=== PATIENT | male | born 2000 ===

== ENCOUNTER 2023-09-09 19:35 | Inpatient (IN) | payer OTHER ==
[2023-09-10 06:09] LABS: ALT 19 U/L (4-49); AST 23 U/L (17-59); African American GFR (CKD) >90 (>60 ml/min/1.73 sqM); Albumin 4.9 g/dL (3.5-5.0); Alkaline Phosphatase 65 U/L (38-126); Anion Gap 13 mmol/L; Blood Urea Nitrogen 5 mg/dL (9-20); Calcium 9.8 mg/dL (8.4-10.2); Carbon Dioxide 26 mmol/L (22-30); Chloride 102 mmol/L (98-107); Glucose 108 mg/dL (74-99); Non-African American GFR(CKD) >90 (>60 ml/min/1.73 sqM); Sodium 141 mmol/L (137-145); Total Bilirubin 1.3 mg/dL (0.2-1.3)
[2023-09-10 06:10] LABS: Basophils % (A) 0 %; Eosinophils % (A) 0 %; HCT 48.8 % (39.0-53.0); HGB 16.9 gm/dL (13.0-17.5); Lymphocytes # (A) 2.3 k/uL (1.0-4.8); Lymphocytes % (A) 21 %; MCH 28.8 pg (25.0-35.0); MCHC 34.5 g/dL (31.0-37.0); MCV 83.4 fL (80.0-100.0); Mean Platelet Volume 9.2; Monocytes # (A) 0.7 k/uL (0-1.0); Monocytes % (A) 7 %; Neutrophils % (A) 71 %; Platelet Count 177 k/uL (150-450); RBC 5.85 m/uL (4.30-5.90); RDW 12.6 % (11.5-15.5); WBC 11.3 k/uL (3.8-10.6)
[2023-09-10 06:12] LABS: Potassium 3.6 mmol/L (3.5-5.1)
[2023-09-10 06:53] LABS: Appearance,Urine Clear (Clear); Bilirubin,Urine Negative (Negative); Blood,Urine Negative (Negative); Color,Urine Yellow; Glucose,Urine (UA) Negative (Negative); Ketones,Urine 3+ (Negative); Leukocyte Esterase,Urine Negative (Negative); Mucus,Urine Occasional /hpf; Nitrite,Urine Negative (Negative); Protein,Urine Negative (Negative); RBC,Urine 1 /hpf (0-5); Squamous Epithelial Cell,Urine <1 /hpf (0-4); Urobilinogen,Urine <2.0 mg/dL (<2.0); WBC,Urine 1 /hpf (0-5)
[2023-09-10 07:28] LABS: Amphetamine Screen,Urine Not Detected (NotDetected); Barbiturate Screen,Urine Not Detected (NotDetected); Benzodiazepines Screen,Urine Detected (NotDetected); Cocaine Screen,Urine Not Detected (NotDetected); Methadone Screen, Urine Not Detected (NotDetected); Opiate Screen,Urine Not Detected (NotDetected); Oxycodone Screen, Urine Not Detected (NotDetected); Phencyclidine Screen,Urine Not Detected (NotDetected); Tricyclic Antidepressant,Urine Not Detected (NotDetected); Urn Cannabinoid Scrn Detected (NotDetected)
[2023-09-10] MEDS ORDERED: MAG HYDROX/AL HYDROX/SIMETH 30 ML CUP PO PRN (09:44)
[2023-09-10] MEDS ORDERED: IBUPROFEN 600 MG TAB PO PRN (09:44)
[2023-09-10] MEDS ORDERED: MAGNESIUM HYDROXIDE 2,400 MG/30 ML CUP PO PRN (09:44)
[2023-09-10] MEDS ORDERED: OLANZapine 10 MG VIAL IM PRN (10:11)
[2023-09-10] MEDS ORDERED: OLANZapine 7.5 MG TAB PO PRN (10:11)
[2023-09-10] MEDS ORDERED: hydrOXYzine HCL 50 MG/ML 1 ML VIAL IM PRN (10:14)
[2023-09-10] MEDS ORDERED: NICOTINE 14MG/24HR PATCH TRANSDERM SCH (10:15)
[2023-09-10] MEDS ORDERED: chlordiazePOXIDE 25 MG CAP PO STA (12:01)
--- NOTE | 2023-09-10 14:00 | P.HP ---
Psychiatric H&P - . H&P Date: 09/10/23 History & Physical: Allergies Allergy/AdvReac Type Severity Reaction Status Date / Time No Known Allergies Allergy Verified 09/10/23 12:57 Vital Signs Temp 98 F 09/10/23 08:00 Pulse 84 09/10/23 12:04 Resp 20 09/10/23 12:04 BP 203/77 09/10/23 12:04 Pulse Ox 98 09/10/23 11:31 FiO2 Intake & Output 09/09/23 09/10/23 09/10/23 18:59 06:59 18:59 Weight 56.699 kg 56.699 kg Laboratory Last Values WBC 11.3 k/uL (3.8-10.6) H 09/09/23 21:12 RBC 5.85 m/uL (4.30-5.90) 09/09/23 21:12 Hgb 16.9 gm/dL (13.0-17.5) 09/09/23 21:12 Hct 48.8 % (39.0-53.0) 09/09/23 21:12 MCV 83.4 fL (80.0-100.0) 09/09/23 21:12 MCH 28.8 pg (25.0-35.0) 09/09/23 21:12 MCHC 34.5 g/dL (31.0-37.0) 09/09/23 21:12 RDW 12.6 % (11.5-15.5) 09/09/23 21:12 Plt Count 177 k/uL (150-450) 09/09/23 21:12 MPV 9.2 09/09/23 21:12 Neutrophils % 71 % 09/09/23 21:12 Lymphocytes % 21 % 09/09/23 21:12 Monocytes % 7 % 09/09/23 21:12 Eosinophils % 0 % 09/09/23 21:12 Basophils % 0 % 09/09/23 21:12 Neutrophils # 8.0 k/uL (1.3-7.7) H 09/09/23 21:12 Lymphocytes # 2.3 k/uL (1.0-4.8) 09/09/23 21:12 Monocytes # 0.7 k/uL (0-1.0) 09/09/23 21:12 Eosinophils # 0.0 k/uL (0-0.7) 09/09/23 21:12 Basophils # 0.0 k/uL (0-0.2) 09/09/23 21:12 Sodium 141 mmol/L (137-145) 09/09/23 21:12 Potassium 3.6 mmol/L (3.5-5.1) 09/09/23 21:12 Chloride 102 mmol/L (98-107) 09/09/23 21:12 Carbon Dioxide 26 mmol/L (22-30) 09/09/23 21:12 Anion Gap 13 mmol/L 09/09/23 21:12 BUN 5 mg/dL (9-20) L 09/09/23 21:12 Creatinine 0.59 mg/dL (0.66-1.25) L 09/09/23 21:12 Est GFR (CKD-EPI)AfAm >90 (>60 ml/min/1.73 sqM) 09/09/23 21:12 Est GFR (CKD-EPI)NonAf >90 (>60 ml/min/1.73 sqM) 09/09/23 21:12 Glucose 108 mg/dL (74-99) H 09/09/23 21:12 Calcium 9.8 mg/dL (8.4-10.2) 09/09/23 21:12 Total Bilirubin 1.3 mg/dL (0.2-1.3) 09/09/23 21:12 AST 23 U/L (17-59) 09/09/23 21:12 ALT 19 U/L (4-49) 09/09/23 21:12 Alkaline Phosphatase 65 U/L (38-126) 09/09/23 21:12 Total Protein 8.0 g/dL (6.3-8.2) 09/09/23 21:12 Albumin 4.9 g/dL (3.5-5.0) 09/09/23 21:12 TSH 1.770 mIU/L (0.465-4.680) 09/09/23 21:12 Urine Color Yellow 09/10/23 03:30 Urine Appearance Clear (Clear) 09/10/23 03:30 Urine pH 7.0 (5.0-8.0) 09/10/23 03:30 Ur Specific [place] 1.010 (1.001-1.035) 09/10/23 03:30 Urine Protein Negative (Negative) 09/10/23 03:30 Urine Glucose (UA) Negative (Negative) 09/10/23 03:30 Urine Ketones 3+ (Negative) H 09/10/23 03:30 Urine Blood Negative (Negative) 09/10/23 03:30 Urine Nitrite Negative (Negative) 09/10/23 03:30 Urine Bilirubin Negative (Negative) 09/10/23 03:30 Urine Urobilinogen <2.0 mg/dL (<2.0) 09/10/23 03:30 Ur Leukocyte Esterase Negative (Negative) 09/10/23 03:30 Urine RBC 1 /hpf (0-5) 09/10/23 03:30 Urine WBC 1 /hpf (0-5) 09/10/23 03:30 Ur Squamous Epith Cells <1 /hpf (0-4) 09/10/23 03:30 Urine Mucus Occasional /hpf (None) H 09/10/23 03:30 Urine Opiates Screen Not Detected (NotDetected) 09/10/23 03:30 Ur Oxycodone Screen Not Detected (NotDetected) 09/10/23 03:30 Urine Methadone Screen Not Detected (NotDetected) 09/10/23 03:30 Ur Propoxyphene Screen Not Detected (NotDetected) 09/10/23 03:30 Ur Barbiturates Screen Not Detected (NotDetected) 09/10/23 03:30 U Tricyclic Antidepress Not Detected (NotDetected) 09/10/23 03:30 Ur Phencyclidine Scrn Not Detected (NotDetected) 09/10/23 03:30 Ur Amphetamines Screen Not Detected (NotDetected) 09/10/23 03:30 U Methamphetamines Scrn Not Detected (NotDetected) 09/10/23 03:30 U Benzodiazepines Scrn Detected (NotDetected) H 09/10/23 03:30 Urine Cocaine Screen Not Detected (NotDetected) 09/10/23 03:30 U Marijuana (THC) Screen Detected (NotDetected) H 09/10/23 03:30 Coronavirus (PCR) Not Detected (Not Detectd) 09/10/23 05:00 09/10/23 13:54 IDENTIFYING DATA: Patient is a 23-year-old male, currently homeless, he is u nemployed. HPI: Patient presented to the hospital yesterday, he was apparently brought in for bizarre behavior, psychotic symptoms responding to internal stimuli according to the CPS report. Patient apparently was seen at [facility] a couple of days ago and discharged. Patient gave a urine drug screen which was positive for THC and benzodiazepines. Patient was seen today laying in bed and agreeable speaker rewriter. He knew his full name, his age, he knew that he was in [facility]. He knew the correct month and year however believe that it was the . He appeared to be tearful at times and very suspicious of brighter. He was isolating in his room, refused to eat lunch today. He was endorsing severe paranoia thinking that his family was going to come to get him and also "jumped me". He was stating that he was feeling depressed and also anxious. He is claiming that he is very worried and cannot sleep. He appeared to be internally preoccupied. He states that his sleep is very poor, appetite is poor. He states that he cannot hold a job as he is "quitting everything". Patient denies any suicidal or homicidal ideations intent or plan. At this time patient denies any auditory or visual hallucinations. Patient claims that he smokes marijuana however did not specify how much, he also states he smokes cigarettes, denies any other recreational drug use. PAST PSYCHIATRIC HISTORY: Patient states that he has no previous mental health issues. Patient denies being on any psychiatric medications. Patient denies any previous psychiatric hospitalizations. Patient denies any psychiatric outpatient follow-up. Patient denies any history of suicide attempts in the past. PMH:denies ALLERGIES: as per EMR CHEMICAL DEPENDENCY HISTORY: as per HPI FAMILY PSYCHIATRIC/SUBSTANCE USE HISTORY: denies SOCIAL HISTORY: Patient was born and raised in [place] and claims that he moved to [place] when he was a young kid due to his mother moving with his step father. He states that he completed up to the 12th grade in school, denies any legal history. He states that he is currently homeless, he is unemployed. MENTAL STATUS EXAM: General Appearance: Patient appears to be thin, appears to be anxious and shaking at times, stated age is alert, directable, and attempts to cooperate. Patient appears to have poor hygiene and grooming. Behavior: Patient is seated without any agitated behavior. Severe paranoia. Attempts to cooperate Speech: Patient's speech is fluent and nonpressured. Hesitant and timid Mood/Affect: Patient reports their mood is depressed, affect is congruent and tearful Suicidality/Homicidality: Patient denies having any homicidal ideation intent or plan. Denies any suicidal ideations intent or plan Perceptions: Patient denies any visual hallucinations and denies any auditory hallucinations Though content/process: Paranoia towards family and other people on the unit, bizarre thoughts, illogical. Memory and concentration: AOX3, grossly intact for the purposes of this session. Can spell "WORLD" backwards Judgment and insight: poor STRENGTHS/WEAKNESSES: strength is that patient is resilient. Weakness is that patient has poor judgment and is impulsive INTELLECT: average IMPRESSIONS: Psychosis unspecified Cannabis use disorder Nicotine dependence PLAN: -Patient is admitted under involuntary status to MHU for stabilization of psychiatric symptoms and safety. Patient has not signed adult voluntary form and medication consent and is placed in patient's chart. A second certification was completed and along with petition will be filed for court. -Medications : Start paliperidone by mouth 3 mg daily at bedtime for psychosis/mood stabilization, trazodone 50 mg daily at bedtime for sleep. -Zyprexa and Vistaril PRN for agitation/aggression -Patient was counselled on substance abuse and desired to cut back on use -Patient was informed of the risks, benefits and side effects of the medication and patient verbally consented -Internal Medicine consult to perform medical evaluation and physical. -NRT - nicotine patch -SW on board for discharge planning. Encourage patient to participate in groups to work on coping skills. Will await deferral and court date.
--- NOTE | 2023-09-10 14:53 | CT ---
EXAMINATION TYPE: CT brain wo con DATE OF EXAM: 09/10/2023 COMPARISON: None HISTORY: first episode psychosis CT DLP: [address] of the brain was performed. Portions of the study are limited by patient motion. The ventricles, basal cisterns and sulci overlying the cerebral convexities demonstrate a normal appe arance. There is no evidence for intracranial hemorrhage or sulcal effacement. No mass effects are seen. Osseous calvarium is intact. If symptoms persist consider MRI as clinically warranted. IMPRESSION: 1. No acute intracranial process is seen at this time.
[2023-09-10] MEDS: hydrOXYzine pamoate 25 MG CAP PO PRN (17:06)
[2023-09-10] MEDS: OLANZapine 10 MG TAB PO PRN (17:06)
[2023-09-10] MEDS ORDERED: HALOPERIDOL LACTATE 5 MG/ML 1 ML VIAL IM STA (18:44)
[2023-09-10] MEDS ORDERED: LORazepam 2 MG/ML INJ IM STA (18:45)
[2023-09-10] MEDS ORDERED: PALIPERIDONE 3 MG TAB.ER.24 PO SCH (21:00)
[2023-09-10] MEDS ORDERED: traZODone HCL 50 MG TAB PO SCH (21:00)
[2023-09-10] MEDS ORDERED: QUEtiapine 50 MG TAB PO SCH (21:00)
--- NOTE | 2023-09-11 01:46 | P.PN ---
Progress Note - Text Progress Note Date: 09/10/23 patient continues to be psychotic , unpredictable, and aggressive , per RN patient not appropriate for evaluation at this time
[2023-09-11] MEDS ORDERED: LORazepam 1 MG TAB PO PRN (10:10)
[2023-09-11] MEDS ORDERED: traZODone HCL 50 MG TAB PO PRN (10:11)
--- NOTE | 2023-09-11 10:17 | P.PN ---
Progress Note - Text Progress Note Date: 09/11/23 Interval history: Patient was seen today sitting in his room on his bed facing out the window. He was agreeable to speak with song writer in the office today. She brought all his belongings in a paper bag. When asked about it he states "I don't trust anybody here" and believes that his family or friends might come and steal his items. He continues to endorse severe paranoia and believes that the government also may be coming after him. He also states that he is getting messages from the government and other people however he cannot call song writer what they are. He made several bizarre statements and is illogical and had several delusions which are loosely formed. Patient appeared to be responding to internal stimuli and laughing at times. His blood pressure fluctuated significantly yesterday and he was agreeable to try blood pressure medication today. He states that he slept fairly last night, was feeling tired this morning. He has very poor decision- making skills, poor insight and judgment. At this time he is claiming he hears voices, denies any visual hallucinations. Denies any suicidal or homicidal ideations intent or plan. Not reporting any side effects from medications. Mental status examination: General Appearance: Patient appears to be thin, appears to be anxious, stated age is alert, directable, and attempts to cooperate. Patient appears to have mildly improving hygiene and grooming. Behavior: Patient is seated without any agitated behavior. Severe paranoia. Attempts to cooperate. Bizarre Speech: Patient's speech is fluent and nonpressured. Mood/Affect: Patient reports their mood is anxious, affect is congruent Suicidality/Homicidality: Patient denies having any homicidal ideation intent or plan. Denies any suicidal ideations intent or plan Perceptions: Patient denies any visual hallucinations and denies any auditory hallucinations Though content/process: Paranoia towards family and other people on the unit, bizarre thoughts, illogical. Several loosely formed delusions. Memory and concentration: AOX3, grossly intact for the purposes of this session Judgment and insight: poor IMPRESSIONS: Psychosis unspecified Cannabis use disorder Nicotine dependence alcohol use disorder? PLAN: -Patient is admitted under involuntary status to MHU for stabilization of psychiatric symptoms and safety. Patient has not signed adult voluntary form and medication consent and is placed in patient's chart. A second certification was completed and along with petition will be filed for court. -Medications : Increase paliperidone by mouth 6 mg daily at bedtime for psychosis/mood stabilization, change trazodone 50 mg daily at bedtime prn for sleep. -Zyprexa and Vistaril PRN for agitation/aggression -unclear if patient is withdrawing from etoh at this time due to unstable vitals. pt reports a vague and illogical hx of etoh use. start ciwa q4hr with prn ativan -CT brain on 09/10 - negative for any acute changes. -NRT - nicotine patch -SW on board for discharge planning. Encourage patient to participate in groups to work on coping skills. Will await deferral and court date.
[2023-09-11] MEDS: amLODIPine 5 MG TAB PO SCH (11:42)
[2023-09-11] MEDS: LORazepam 1 MG TAB PO PRN ×2 (11:50→19:57)
[2023-09-11 12:30] LABS: Basophils # (A) 0.1 k/uL (0-0.2); Basophils % (A) 1 %; Eosinophils # (A) 0.1 k/uL (0-0.7); Eosinophils % (A) 0 %; HCT 54.1 % (39.0-53.0); Lymphocytes % (A) 15 %; MCH 29.7 pg (25.0-35.0); MCHC 35.1 g/dL (31.0-37.0); MCV 84.7 fL (80.0-100.0); Monocytes # (A) 0.7 k/uL (0-1.0); Monocytes % (A) 5 %; Neutrophils % (A) 77 %; Platelet Count 241 k/uL (150-450); RBC 6.39 m/uL (4.30-5.90); RDW 13.2 % (11.5-15.5)
[2023-09-11 12:33] LABS: ALT 25 U/L (4-49); AST 42 U/L (17-59); African American GFR (CKD) >90 (>60 ml/min/1.73 sqM); Albumin 5.6 g/dL (3.5-5.0); Alkaline Phosphatase 60 U/L (38-126); Anion Gap 20 mmol/L; Blood Urea Nitrogen 17 mg/dL (9-20); Calcium 10.8 mg/dL (8.4-10.2); Carbon Dioxide 25 mmol/L (22-30); Chloride 99 mmol/L (98-107); Glucose 95 mg/dL (74-99); Non-African American GFR(CKD) >90 (>60 ml/min/1.73 sqM); Potassium 4.1 mmol/L (3.5-5.1); Sodium 144 mmol/L (137-145); Total Bilirubin 1.6 mg/dL (0.2-1.3); Total Protein 9.2 g/dL (6.3-8.2)
[2023-09-11 16:45] LABS: Chol/HDL Ratio 1.69 Ratio; LDL Cholesterol,Calculated 25.4 mg/dL (0.0-131.0); VLDL Calculation 10.36 mg/dL (5.00-40.00)
[2023-09-11] MEDS: NICOTINE 14MG/24HR PATCH TRANSDERM SCH (17:29)
[2023-09-11] MEDS ORDERED: hydrALAZINE HCL 25 MG TAB PO PRN (18:11)
--- NOTE | 2023-09-11 18:12 | P.MDCNMH ---
History of Present Illness H&P Date: 09/11/23 Chief Complaint: medical management 23 year old man who presented for mental health evaluation. Pt is actively psychotic and history is limited. His only complaint is inability to go to sleep. He is being treated for withdrawal with Ativan PRN. He denies hx of HTN, HLD, DM, heart, kidney, liver disease, CVA or DE. Gen: awake, alert HEENT: normocephalic, atraumatic, good hearing acuity, moist mucous membranes Resp: good air exchange, breathing comfortably with no accessory muscle use CVS: good distal perfusion x 4, GI: soft, NTTP, ND : no SPT, no CVAT, becker catheter not present MSK: no pitting edema, no clubbing Neuro: non-focal, moving all extremities Psych: cooperative, euthymic mood, psychotic Assessment/plan: Polycythemia Hypertensive urgency Tachycardia - Artery with 5 mg daily of amlodipine, will add 10 mg daily of lisinopril - Hydralazine 25 mg 4 times a day when necessary for SBP greater than 180 - Continue to treat withdrawal symptoms with Ativan when necessary - Repeat labs tomorrow a.m. Pt is Full COde Past Medical History History of Any Multi-Drug Resistant Organisms: None Reported Past Psychological History: Bipolar Smoking Status: Current some day smoker, Former smoker, Vaper Past Alcohol Use History: None Reported Past Drug Use History: None Reported Medications and Allergies Home Medications Medication Instructions Recorded Confirmed Type No Known Home Medications 09/10/23 09/10/23 History Allergies Allergy/AdvReac Type Severity Reaction Status Date / Time No Known Allergies Allergy Verified 09/10/23 12:57 Physical Exam Osteopathic Statement: *. No significant issues noted on an osteopathic structural exam other than those noted in the History and Physical/Consult. Vitals: Vital Signs Pulse BP 09/11/23 11:48 126 H 181/87 Cranial Nerve Examination - Cranial Nerves Cranial Nerve II- Optic: Intact Cranial Nerve III- Oculomotor: Intact Cranial Nerve IV- Trochlear: Intact Cranial Nerve V- Trigeminal: Intact Cranial Nerve - Abducens: Intact Cranial Nerve VII- Facial: Intact Cranial Nerve VIII- Auditory: Intact Cranial Nerve IX- Glossopharyngeal: Intact Cranial Nerve X- Vagus: Intact Cranial Nerve XI- Accessory: Intact Cranial Nerve XII- Hypoglossal: Intact Results CBC & Chem 7: 09/11/23 10:40 10/20/23 10:40 Labs: Abnormal Lab Results - Last 24 Hours (Table) 09/11/23 09/11/23 Range/Units 10:40 10:40 WBC 13.0 H (3.8-10.6) k/uL RBC 6.39 H (4.30-5.90) m/uL Hgb 19.0 H (13.0-17.5) gm/dL Hct 54.1 H (39.0-53.0) % Neutrophils # 10.0 H (1.3-7.7) k/uL Calcium 10.8 H (8.4-10.2) mg/dL Total Bilirubin 1.6 H (0.2-1.3) mg/dL Total Protein 9.2 H (6.3-8.2) g/dL Albumin 5.6 H (3.5-5.0) g/dL
[2023-09-11] MEDS: lisinopriL 10 MG TAB PO SCH (19:01)
[2023-09-11] MEDS ORDERED: PALIPERIDONE 6 MG TAB.ER.24 PO SCH (21:00)
[2023-09-11] MEDS: OLANZapine 10 MG TAB PO PRN (21:38)
--- NOTE | 2023-09-12 11:07 | P.PN ---
Progress Note - Text Progress Note Date: 09/12/23 Interval history: Patient was seen lying in his bed this morning and was directable and agreeable to speak with fha underwriter. Patient appeared to be somewhat lethargic. He was attempting to speak with the fha underwriter difficult to redirect. He had several pieces of paper with rape written on it in his room. He claims that he is worried about someone coming into his room and continues to have disorganized thoughts and paranoia. He has been taking his medications as prescribed. He states that he has a difficult time sleeping last night. Claims that he has not been going to many groups and mainly isolating in his room, mild improvement in hygiene and grooming. At this time patient denies any suicidal or homicidal ideations intent or plan. Denies any Auditory or visual hallucinations. Patient denies any side effects from the medications and has been compliant with meds. Mental status exam: General Appearance: Patient appears to be stated age is alert, directable, and attempts to be cooperative. Behavior: No agitated behavior. Patient is calm and directable and tends to be paranoid and disorganized Speech: Patient's speech is fluent and nonpressured. Mood/Affect: Mood is improving mildly, affect is congruent and constricted. Suicidality/Homicidality: Patient denies having any suicidal or homicidal ideation intent or plan. Perceptions: Patient denies any auditory or visual hallucinations. Though content/process: Delusional, mildly improving. Attempts to cooperate. Endorsing paranoia, mildly improving. Memory and concentration: AOX3, grossly intact for the purposes of this session Judgment and insight: Poor, improving mildly Assessment/Plan: Continue with current diagnosis. Patient continues to meet criteria for inpatient psychiatric admission for symptom stabilization and safety.Patient will be maintained on current psychotropic medication regimen, with the exception of increasing paliperidone to 9 mg daily at bedtime for psychosis, increased Norvasc to 10 mg daily for significant hypertension. Monitor for medication compliance and for any psychotropic medication side effects. Will continue to monitor ongoing response to treatment. Encouraged participation in milieu.
[2023-09-12] MEDS: lisinopriL 10 MG TAB PO SCH (11:52)
[2023-09-12] MEDS: amLODIPine 5 MG TAB PO SCH (11:52)
[2023-09-12] MEDS: NICOTINE 14MG/24HR PATCH TRANSDERM SCH (11:53)
[2023-09-12 12:38] LABS: Basophils % (A) 0 %; Eosinophils % (A) 0 %; HCT 49.2 % (39.0-53.0); HGB 17.2 gm/dL (13.0-17.5); Lymphocytes # (A) 1.3 k/uL (1.0-4.8); Lymphocytes % (A) 13 %; MCH 29.3 pg (25.0-35.0); MCHC 34.9 g/dL (31.0-37.0); Mean Platelet Volume 9.4; Monocytes # (A) 0.6 k/uL (0-1.0); Monocytes % (A) 6 %; Neutrophils # (A) 7.8 k/uL (1.3-7.7); Neutrophils % (A) 79 %; Platelet Count 192 k/uL (150-450); RBC 5.86 m/uL (4.30-5.90); RDW 13.3 % (11.5-15.5)
[2023-09-12 13:10] LABS: African American GFR (CKD) 66 (>60 ml/min/1.73 sqM); Anion Gap 16 mmol/L; Blood Urea Nitrogen 18 mg/dL (9-20); Carbon Dioxide 22 mmol/L (22-30); Chloride 97 mmol/L (98-107); Glucose 128 mg/dL (74-99); Magnesium 2.1 mg/dL (1.6-2.3); Non-African American GFR(CKD) 57 (>60 ml/min/1.73 sqM); Potassium 4.2 mmol/L (3.5-5.1); Sodium 135 mmol/L (137-145)
[2023-09-12] MEDS ORDERED: LORazepam 2 MG/ML INJ IM STA (13:11)
[2023-09-12] MEDS ORDERED: SODIUM CHLORIDE 0.9% 1,000 ML IV ONE (14:01)
[2023-09-12] MEDS ORDERED: METOPROLOL TARTRATE 12.5 MG TAB PO SCH (14:27)
--- NOTE | 2023-09-12 14:40 | P.PN ---
Progress Note - Text Progress Note Date: 09/12/23 A- team: Indication: Received page that patient's heart rate was 173 bpm, notified RN to call for immediate A-Team to get EKG at bedside Arrived on Scene to find: Patient resting bed appearing to be comfortable and denied having any complaints. Patient was noted to have intermittent mild tremors. He is currently admitted to inpatient mental health unit for treatment of psychosis under treatment of psychiatry team. During this time patient has been treated for tachycardia and hypertensive urgency. Patient was started on amlodipine 5 mg daily and lisinopril 10 mg daily. He has when necessary Ativan ordered for signs/symptoms of withdraw. Urine drug screen upon admission was positive for benzodiazepines and marijuana. Patient also reports to daily alcohol use but is very vague with his responses, patient states I drink every day and then giggles but did not elaborate on the amount of alcohol he drinks daily. He was admitted to inpatient psychiatric unit on 09/10/23 and patient reports it has been approximately 48 hours or so since his last alcoholic drink. Again, patient denies having any complaints or concerns at this time. He was noted to have a significant drop in his blood pressure as upon arrival blood pressure was 203/77 and is currently 113/52 after medications were administered. Order placed for stat EKG, CBC, BMP, d-dimer, and magnesium. TSH was drawn yesterday and was normal findings at 2.030. General: non toxic, no distress, appears at stated age Derm: warm, dry and coloration normal for ethnicity Head: atraumatic, normocephalic, symmetric Eyes: EOMI, no lid lag, anicteric sclera Mouth: no lip lesion, mucus membranes moist Cardiovascular: S1S2 reg, no murmur, positive posterior tibial pulses bilaterally, tachycardic rate with regular rhythm Lungs: CTA bilateral, no rhonchi, no rales , no accessory muscle use Abdominal: soft, nontender to palpation, no guarding, no appreciable organomegaly Ext: no gross muscle atrophy, no edema, no contractures Neuro: CN II-XI grossly intact, no focal neuro deficits Psych: Alert, oriented, appropriate affect Assessment: Sinus tachycardia, possibly secondary to withdrawal vs rebound tachycardia resulting from significant drop in blood pressure vs adverse reaction of medication such as Invega or zyprexa Acute kidney injury Psychosis, unspecified Alcohol withdrawal Cannabinoid use disorder Nicotine dependence Plan: -Labs ordered and reviewed. CBC was unremarkable showing a WBC count of 10.0, hemoglobin of 17.2, and platelet count of 192. BMP revealing hyponatremia with sodium of 135, hypochloremia with chloride of 97, and an acute kidney injury with BUN of 18, creatinine 1.68, and GFR 57 (baseline creatinine of 0.85). Magnesium normal findings at 2.1 and d-dimer normal findings is 0.18. -Order placed for EKG and reviewed. EKG revealing sinus tachycardia at 135 bpm with no significant T-wave or ST abnormalities showing no signs of acute ischemia with a normal QT/QTc of 301/380 ms.. -Order placed for Ativan 2 mg IM 1 dose, will monitor for improvement. -Lisinopril discontinued secondary to acute kidney injury and order placed for 1 L 0.9% normal saline to be infused. -Acute kidney injury could possibly be secondary to significant drop in blood pressure vs dehydration vs adverse effects of medication. -Discussed these findings with [facility] primary admitting physician, Dr. Pinto. Patient to remain on mental health unit and to continue to be monitored closely. -Order placed for repeat BMP tomorrow morning to follow up on renal function. -Do not recommend any additional antihypertensive medications at this time. Repeat vital signs after administration of IM Ativan completed and reviewed. Blood pressure 131/53, heart rate 122, respiratory rate 16 and temp 98.1F A Total of 38 minutes of critical care time was spent on the complex care of this patient. Patient was seen independently by Nurse Pracitioner. This document was prepared using [employer] dictation software. Please allow for errors in jumbo operator, while rare they do occur. Gian Espinal NP rendered care for this patient independently, reviewed the findings and plan as documented in the note above. I did not physically speak with or examine the patient on this date.
[2023-09-12] MEDS: OLANZapine 10 MG TAB PO PRN (17:34)
[2023-09-12] MEDS ORDERED: PALIPERIDONE 3 MG TAB.ER.24 PO SCH (21:00)
[2023-09-13] MEDS: amLODIPine 10 MG TAB PO SCH (08:58)
[2023-09-13] MEDS: NICOTINE 14MG/24HR PATCH TRANSDERM SCH (08:58)
--- NOTE | 2023-09-13 11:52 | P.PN ---
Progress Note - Text Progress Note Date: 09/13/23 Interval history: Patient was seen near the nurse's desk today sitting on the ground. He appears to be more awake today. He claims that he is doing a bit better. He states that he is still feeling fairly paranoid about his family or his father coming onto the unit and taking his belongings. He also did speak about "great". He states that he does not feel safe on the unit however was smiling during the interaction. He continues to have fairly poor insight and judgment. He states that he has not heard from his parents since being on the unit and is worried and wants to know ". They want me back home or not". States that he did not sleep well last night and slept with one eye open. continues to have disorganized thoughts and paranoia. He has been taking his medications as prescribed. mild improvement in hygiene and grooming. At this time patient denies any suicidal or homicidal ideations intent or plan. Denies any Auditory or visual hallucinations. Patient denies any side effects from the medications and has been compliant with meds. Mental status exam: General Appearance: Patient appears to be stated age is alert, directable, and attempts to be cooperative. Behavior: No agitated behavior. Patient is calm and directable and tends to be paranoid and disorganized, mild improvement Speech: Patient's speech is fluent and nonpressured. Mood/Affect: Mood is improving mildly, affect is congruent and constricted. Suicidality/Homicidality: Patient denies having any suicidal or homicidal ideation intent or plan. Perceptions: Patient denies any auditory or visual hallucinations. Though content/process: Delusional, mildly improving. Attempts to cooperate. Endorsing paranoia Memory and concentration: AOX3, grossly intact for the purposes of this session Judgment and insight: Poor, improving mildly Assessment/Plan: Continue with current diagnosis. Patient continues to meet criteria for inpatient psychiatric admission for symptom stabilization and safety.Patient will be maintained on current psychotropic medication regimen, with the exception of d/c paliperidone due to unstable vitals/tachycardia and replaced with geodon 40 mg bid for psychosis, trazodone 50 mg qhs for sleep. Monitor for medication compliance and for any psychotropic medication side effects. Will continue to monitor ongoing response to treatment. Encouraged participation in milieu. reviewed ekg today and continue to monitor pts bp and HR closely.
[2023-09-13] MEDS: ZIPRASIDONE 40 MG CAP PO SCH ×2 (13:04→17:15)
[2023-09-13 17:04] LABS: African American GFR (CKD) >90 (>60 ml/min/1.73 sqM); Anion Gap 12 mmol/L; Blood Urea Nitrogen 15 mg/dL (9-20); Calcium 9.7 mg/dL (8.4-10.2); Carbon Dioxide 26 mmol/L (22-30); Chloride 100 mmol/L (98-107); Glucose 94 mg/dL (74-99); Non-African American GFR(CKD) >90 (>60 ml/min/1.73 sqM); Potassium 4.5 mmol/L (3.5-5.1); Sodium 138 mmol/L (137-145)
[2023-09-13] MEDS: hydrOXYzine pamoate 25 MG CAP PO PRN (20:57)
[2023-09-13] MEDS ORDERED: traZODone HCL 50 MG TAB PO SCH (21:00)
[2023-09-14] MEDS: NICOTINE 14MG/24HR PATCH TRANSDERM SCH (07:58)
[2023-09-14] MEDS: ZIPRASIDONE 40 MG CAP PO SCH ×2 (07:58→18:35)
[2023-09-14] MEDS: amLODIPine 10 MG TAB PO SCH (07:58)
[2023-09-14] MEDS ORDERED: LORazepam 1 MG TAB PO PRN (12:45)
--- NOTE | 2023-09-14 13:34 | P.PN ---
Progress Note - Text Progress Note Date: 09/14/23 Interval history: Patient was seen today and was sitting in the lounge and other patients. Sunshine hernandez claims that he is doing a bit better today, states that he did have a mild headache this morning. He claims that he feels that the medications of been helping however was fairly irrational in his response. He continues to be somewhat bizarre, less paranoid today however continues to focus on his parents not calling him. He states that he gave the money to buy him a truck however they did not give him back his money or the truck. He claims that he is still finding it difficult to sleep at night and only slept a few hours, states that he still feels anxious at times and feels like his heart is racing. mild improvement in hygiene and grooming. At this time patient denies any suicidal or homicidal ideations intent or plan. Denies any Auditory or visual hallucinations. Patient denies any side effects from the medications and has been compliant with meds. Mental status exam: General Appearance: Patient appears to be stated age is alert, directable, and attempts to be cooperative. Behavior: No agitated behavior. Patient is calm and directable and tends to be paranoid, mild improvement Speech: Patient's speech is fluent and nonpressured. Mood/Affect: Mood is improving mildly, affect is congruent and constricted. Suicidality/Homicidality: Patient denies having any suicidal or homicidal ideation intent or plan. Perceptions: Patient denies any auditory or visual hallucinations. Though content/process: Delusional, mildly improving. Attempts to cooperate. less paranoia Memory and concentration: AOX3, grossly intact for the purposes of this session Judgment and insight: Poor, improving mildly Assessment/Plan: Continue with current diagnosis. Patient continues to meet criteria for inpatient psychiatric admission for symptom stabilization and safety.Patient will be maintained on current psychotropic medication regimen, continue with geodon 40 mg bid for psychosis, increase trazodone 100 mg qhs for sleep. added po ativan prn for anxiety and also lopressor for rate control due to ongoing tachycardia. Monitor for medication compliance and for any psychotropic medication side effects. Will continue to monitor ongoing response to treatment. Encouraged participation in milieu.
[2023-09-14] MEDS ORDERED: traZODone HCL 100 MG TAB PO SCH (21:00)
[2023-09-15] MEDS: ZIPRASIDONE 40 MG CAP PO SCH ×2 (08:53→17:44)
[2023-09-15] MEDS: amLODIPine 10 MG TAB PO SCH (08:53)
[2023-09-15] MEDS: NICOTINE 14MG/24HR PATCH TRANSDERM SCH (08:53)
[2023-09-15] MEDS ORDERED: METOPROLOL SUCCINATE (ER) 25 MG TAB.ER.24H PO SCH (13:00)
--- NOTE | 2023-09-15 15:07 | P.PN ---
Progress Note - Text Progress Note Date: 09/15/23 Interval history: Patient was seen today and was sitting in the lounge watching television. he was more cooperative today and states that he is doing better. he claims that he is still having some anxiety, denies any depression. He continues to be somewhat bizarre however this is improvin. he states that he still has not had contact with his parents and is worried. reporting less delusions and less paranoia. mild improvement in hygiene and grooming. At this time patient denies any suicidal or homicidal ideations intent or plan. Denies any Auditory or visual hallucinations. Patient denies any side effects from the medications and has been compliant with meds. continues to state that he is not getting enough. Mental status exam: General Appearance: Patient appears to be stated age is alert, directable, and attempts to be cooperative. Behavior: No agitated behavior. Patient is calm and directable and tends to be paranoid, improving. Speech: Patient's speech is fluent and nonpressured. Mood/Affect: Mood is improving mildly, affect is congruent and constricted. Suicidality/Homicidality: Patient denies having any suicidal or homicidal ideation intent or plan. Perceptions: Patient denies any auditory or visual hallucinations. Though content/process: Delusional, improving. Attempts to cooperate. less paranoid today Memory and concentration: AOX3, grossly intact for the purposes of this session Judgment and insight: improving mildly Assessment/Plan: Continue with current diagnosis. Patient continues to meet criteria for inpatient psychiatric admission for symptom stabilization and safety.Patient will be maintained on current psychotropic medication regimen, continue with geodon 40 mg bid for psychosis, increase trazodone 150 mg qhs for sleep. d/c ciwa at this time. Monitor for medication compliance and for any psychotropic medication side effects. Will continue to monitor ongoing response to treatment. Encouraged participation in milieu. likely discharge in 2-3 days.
[2023-09-15] MEDS: traZODone HCL 50 MG TAB PO SCH (21:09)
[2023-09-16] MEDS: METOPROLOL SUCCINATE (ER) 50 MG TAB.ER.24H PO SCH (08:30)
[2023-09-16] MEDS: ZIPRASIDONE 40 MG CAP PO SCH (08:30)
[2023-09-16] MEDS: amLODIPine 10 MG TAB PO SCH (08:30)
[2023-09-16] MEDS: NICOTINE 14MG/24HR PATCH TRANSDERM SCH (08:32)
--- NOTE | 2023-09-16 14:34 | P.PN ---
Progress Note - Text Progress Note Date: 09/16/23 Interval history: Patient was seen today in his room, he was washing his face in the sink. He had a sticker paper over his door handle that stated "kids only". When asked about this he did not gave a rational explanation and went on to speak that he does not trust adults. He smiled at times during the interview sometimes inappropriately. He continues to be somewhat delusional and bizarre in his thought content. He was fairly pleasant during the interaction. he was more cooperative today and states that he is doing better. he claims that he is still having some anxiety, denies any depression. He appears to be mildly less less delusions and less paranoia. mild improvement in hygiene and grooming. At this time patient denies any suicidal or homicidal ideations intent or plan. Denies any Auditory or visual hallucinations. Patient denies any side effects from the medications and has been compliant with meds. Mental status exam: General Appearance: Patient appears to be stated age is alert, directable, and attempts to be cooperative. pleasant. Behavior: No agitated behavior. Patient is calm and directable and tends to be paranoid, improving. bizzare. Speech: Patient's speech is fluent and nonpressured. Mood/Affect: Mood is improving mildly, affect is congruent and constricted. Suicidality/Homicidality: Patient denies having any suicidal or homicidal ideation intent or plan. Perceptions: Patient denies any auditory or visual hallucinations. Though content/process: Delusional, improving. Attempts to cooperate. less paranoid today. bizzare content. Memory and concentration: AOX3, grossly intact for the purposes of this session Judgment and insight: poor, improving mildly Assessment/Plan: Continue with current diagnosis. Patient continues to meet criteria for inpatient psychiatric admission for symptom stabilization and safety.Patient will be maintained on current psychotropic medication regimen, increase geodon 60 mg bid for psychosis, trazodone 150 mg qhs for sleep. Monitor for medication compliance and for any psychotropic medication side effects. Will continue to monitor ongoing response to treatment. Encouraged participation in milieu. likely discharge in 2-3 days. SW continuing to investigate to find out parents contact info.
[2023-09-16] MEDS: traZODone HCL 50 MG TAB PO SCH (20:24)
[2023-09-16] MEDS: ZIPRASIDONE 60 MG CAP PO SCH (20:24)
[2023-09-17] MEDS: ZIPRASIDONE 60 MG CAP PO SCH (08:27)
[2023-09-17] MEDS: amLODIPine 10 MG TAB PO SCH (08:28)
[2023-09-17] MEDS: METOPROLOL SUCCINATE (ER) 50 MG TAB.ER.24H PO SCH (08:28)
[2023-09-17] MEDS: NICOTINE 14MG/24HR PATCH TRANSDERM SCH (08:28)
--- NOTE | 2023-09-17 14:50 | P.PN ---
Progress Note - Text Progress Note Date: 09/17/23 Interval history: Patient was seen today in his room, he was washing his face in the sink and had a towel . He stated that he is "going to meet again". He states that he is feeling "a bit sick" however was fairly vague about his symptoms. He states that he's been drinking "too much of the tap water". He continues to have a sticky note above his door handle on his room that says "kids only" and explained that "it's not just for kids it's for other people to come into my room if they want to sleep here". He continues to be somewhat bizarre, difficult to redirect and laughing to himself. He was responding to internal stimuli still and walking around the room. He continues to be fairly pleasant with technical document writer and attempts to answer questions. Claimed that he was able to sleep last night fairly well. he claims that he is still having some anxiety, denies any depression. He appears to be mildly less delusions. mild improvement in hygiene and grooming. At this time patient denies any suicidal or homicidal ideations intent or plan. Denies any Auditory or visual hallucinations. States that he feels he is not tolerating the medication well. Mental status exam: General Appearance: Patient appears to be thin, stated age is alert, directable, and attempts to be cooperative. pleasant. Behavior: No agitated behavior. Patient is calm and directable and bizzare. pleasant Speech: Patient's speech is fluent and nonpressured. Mood/Affect: Mood is improving mildly, affect is congruent Suicidality/Homicidality: Patient denies having any suicidal or homicidal ideation intent or plan. Perceptions: Patient denies any auditory or visual hallucinations. Though content/process: Delusional, improving. Attempts to cooperate. less paranoid today. bizzare content. Memory and concentration: AOX3, grossly intact for the purposes of this session Judgment and insight: poor, improving mildly Assessment/Plan: Continue with current diagnosis. Patient continues to meet criteria for inpatient psychiatric admission for symptom stabilization and safety.Patient will be maintained on current psychotropic medication regimen, discontinue geodon and replace with prolixin PO 3 mg bid for psychosis, trazodone 150 mg qhs for sleep. Monitor for medication compliance and for any psychotropic medication side effects. Will continue to monitor ongoing response to treatment. Encouraged participation in milieu.
[2023-09-17] MEDS: traZODone HCL 50 MG TAB PO SCH (21:32)
[2023-09-18] MEDS: NICOTINE 14MG/24HR PATCH TRANSDERM SCH ×2 (08:32→17:13)
[2023-09-18] MEDS: amLODIPine 10 MG TAB PO SCH (08:33)
[2023-09-18] MEDS: METOPROLOL SUCCINATE (ER) 50 MG TAB.ER.24H PO SCH (08:33)
[2023-09-18] MEDS ORDERED: BENZTROPINE MESYLATE 0.5 MG TAB PO PRN (10:29)
--- NOTE | 2023-09-18 11:57 | P.PN ---
Progress Note - Text Progress Note Date: 09/18/23 Interval history: Patient was seen today in his room, and appeared to be exercising in the corner of his room. He again was fairly pleasant with regular and attempted to answer questions. He states that he talked to his mother yesterday over the phone and got into a "argument". He states that it was mainly about where he will be staying in the house however did not give further details. He continues to be pleasantly psychotic, bizarre thought process. he attempts to answer questions. Claimed that he was able to sleep last night fairly well. he claims that he is still having some anxiety, claimed that his mood is improving and is trying to remain optimistic. He states that he has been going to some groups and interacting with other patients. He appears to be mildly less delusions. mild improvement in hygiene and grooming. At this time patient denies any suicidal or homicidal ideations intent or plan. Denies any Auditory or visual hallucinations. Mental status exam: General Appearance: Patient appears to be thin, stated age is alert, directable, and attempts to be cooperative. pleasant. Behavior: No agitated behavior. Patient is calm and directable and bizzare. pleasant Speech: Patient's speech is fluent and nonpressured. Mood/Affect: Mood is improving mildly, affect is congruent Suicidality/Homicidality: Patient denies having any suicidal or homicidal ideation intent or plan. Perceptions: Patient denies any auditory or visual hallucinations. Though content/process: Delusional, improving. Attempts to cooperate. bizzare content. Memory and concentration: AOX3, grossly intact for the purposes of this session Judgment and insight: poor, improving mildly Assessment/Plan: Continue with current diagnosis. Patient continues to meet criteria for inpatient psychiatric admission for symptom stabilization and safety.Patient will be maintained on current psychotropic medication regimen, increase prolixin po to 5 mg bid for psychosis, added cogentin 0.5 mg bid prn for eps reaction, trazodone 150 mg qhs for sleep. zyprexa and vistaril prn for agitation and anxiety. Monitor for medication compliance and for any psychotropic medication side effects. Will continue to monitor ongoing response to treatment. Encouraged participation in milieu.
[2023-09-18] MEDS: traZODone HCL 50 MG TAB PO SCH (20:16)
[2023-09-19] MEDS: METOPROLOL SUCCINATE (ER) 50 MG TAB.ER.24H PO SCH (08:05)
[2023-09-19] MEDS: amLODIPine 10 MG TAB PO SCH (08:05)
[2023-09-19] MEDS: NICOTINE 14MG/24HR PATCH TRANSDERM SCH (08:05)
[2023-09-19 14:27] VITALS: BMI 19.0
[2023-09-19] MEDS ORDERED: diphenhydrAMINE 50 MG/ML 1 ML VIAL IM STA (16:08)
--- NOTE | 2023-09-19 18:22 | P.PN ---
Progress Note - Text Progress Note Date: 09/19/23 Interval history: Patient was seen today in his room where he was isolating in bed with lights o ff. He complains of muscle stiffness and was given Benadryl 50 mg IM x 1. His thoughts continue to be poorly organized and responses are difficult to understand. He claims he tried showering but got scared from the cold. He states he has been attending groups. He denies auditory hallucinations, and claims visual hallucinations of seeing "dots". He claims good sleep, mood and appetite. Nurses report patient was exhibiting muscle stiffness earlier today when walking and was given Cogentin. Mental status exam: General Appearance: Patient appears to be thin, disheveled adult male. Behavior: No agitated behavior. Laying in bed with lights off. Speech: Patient's speech is fluent and non-pressured. Mood/Affect: Mood is good, affect is congruent Suicidality/Homicidality: Patient denies having any suicidal or homicidal ideation intent or plan. Perceptions: Patient denies any auditory hallucinations, but reports seeing "dots" Though content/process: Delusional thoughts, disorganized thoughts Memory and concentration: AOX3, grossly intact for the purposes of this session Judgment and insight: poor, improving mildly Assessment/Plan: Continue with current diagnosis. Patient continues to meet criteria for inpatient psychiatric admission for symptom stabilization and safety. Increase Cogentin to 1 mg BID for EPS. He was given Benadryl 50 mg IM x 1 for muscle stiffness. Monitor for medication compliance and for any psychotropic medication side effects. Will continue to monitor ongoing response to treatment. Encouraged participation in milieu.
[2023-09-19] MEDS: BENZTROPINE MESYLATE 1 MG TAB PO SCH (20:39)
[2023-09-19] MEDS: traZODone HCL 50 MG TAB PO SCH (20:39)
[2023-09-20] MEDS: BENZTROPINE MESYLATE 1 MG TAB PO SCH ×2 (07:56→21:01)
[2023-09-20] MEDS: METOPROLOL SUCCINATE (ER) 50 MG TAB.ER.24H PO SCH (07:56)
[2023-09-20] MEDS: NICOTINE 14MG/24HR PATCH TRANSDERM SCH (07:56)
[2023-09-20] MEDS: amLODIPine 10 MG TAB PO SCH (07:56)
--- NOTE | 2023-09-20 18:08 | P.PN ---
Progress Note - Text Progress Note Date: 09/20/23 Interval history: Patient was found in the lounge reading and writing, with a peer. He is calm and pleasant on assessment. He reports muscle stiffness has resolved with Benadryl and Cogentin. His thoughts are linear and coherent today. He denies auditory hallucinations or visual hallucinations. He claims good sleep, mood and appetite. He is compliant with his medications and denies any new side effects. Mental status exam: General Appearance: Patient appears to be thin adult male, dressed in clean casual clothes, good hygiene and grooming. Behavior: No agitated behavior. Sitting in [place] reading and writing. Speech: Patient's speech is fluent and non-pressured. Mood/Affect: Mood is good, affect is congruent, bright and reactive. Suicidality/Homicidality: Patient denies having any suicidal or homicidal ideation intent or plan. Perceptions: Patient denies auditory hallucinations or visual hallucinations. Though content/process: Linear, goal-directed, no delusions expressed today Memory and concentration: AOX3, grossly intact for the purposes of this session Judgment and insight: poor, improving mildly Assessment/Plan: Continue with current diagnosis. Patient continues to meet criteria for inpatient psychiatric admission for symptom stabilization and safety. Continue Cogentin 1 mg BID for EPS. Continue current medication regime. Monitor for medication compliance and for any psychotropic medication side effects. Will continue to monitor ongoing response to treatment. Encouraged participation in milieu.
[2023-09-20] MEDS: traZODone HCL 50 MG TAB PO SCH (21:01)
[2023-09-21] MEDS: NICOTINE 14MG/24HR PATCH TRANSDERM SCH (08:00)
[2023-09-21] MEDS: amLODIPine 10 MG TAB PO SCH (08:00)
[2023-09-21] MEDS: BENZTROPINE MESYLATE 1 MG TAB PO SCH ×2 (08:00→21:15)
[2023-09-21] MEDS: METOPROLOL SUCCINATE (ER) 50 MG TAB.ER.24H PO SCH (08:00)
--- NOTE | 2023-09-21 11:47 | P.PN ---
Progress Note - Text Progress Note Date: 09/21/23 Interval history: Patient was seen today wandeirng the hallways and was sitting in the [facility] alone. Patient was going through his folder filled with papers in different activities she eats. He had various drawings over them. He appeared to be laughing less and more directable today and mildly more appropriate with the answers to questions. He states that he is doing better overall. He claims that he is still in an argument with his mother however was not able to describe what it is about. Continues to be distracted at times, mildly bizarre however this is improving. He continues to be taking his medications and not reporting any side effects at this time. Claimed that he was able to sleep last night fairly well. he claims that he is still having some anxiety however this is improving. improving hygiene and grooming. He states that he has been going to some groups and interacting with other patients. mild improvement in hygiene and grooming. At this time patient denies any suicidal or homicidal ideations intent or plan. Denies any Auditory or visual hallucinations. Mental status exam: General Appearance: Patient appears to be thin, stated age is alert, directable, and attempts to be cooperative. pleasant. Behavior: No agitated behavior. Patient is calm and directable and bizzare. pleasant Speech: Patient's speech is fluent and nonpressured. Mood/Affect: Mood is improving mildly, affect is congruent, improving. Suicidality/Homicidality: Patient denies having any suicidal or homicidal ideation intent or plan. Perceptions: Patient denies any auditory or visual hallucinations. Though content/process: less Delusional, improving. Attempts to cooperate. bizzare content at times, improving. Memory and concentration: AOX3, grossly intact for the purposes of this session Judgment and insight: poor, improving mildly Assessment/Plan: Continue with current diagnosis. Patient continues to meet criteria for inpatient psychiatric admission for symptom stabilization and safety.Patient will be maintained on current psychotropic medication regimen, continue prolixin po 5 mg bid for psychosis, continue cogentin 1 mg bid for eps reaction, trazodone 150 mg qhs for sleep. zyprexa and vistaril prn for agitation and anxiety. Monitor for medication compliance and for any psychotropic medication side effects. Will continue to monitor ongoing response to treatment. Encouraged participation in milieu. patient deferred with his workers compensation defense attorney and has been taking meds. will speak with patient about possibly switching onto MEDRANO prolixin for improved control of sx and ensure compliance.
[2023-09-21] MEDS: traZODone HCL 50 MG TAB PO SCH (21:14)
[2023-09-22] MEDS: BENZTROPINE MESYLATE 1 MG TAB PO SCH ×3 (08:13→20:26)
[2023-09-22] MEDS: METOPROLOL SUCCINATE (ER) 50 MG TAB.ER.24H PO SCH (08:13)
[2023-09-22] MEDS: NICOTINE 14MG/24HR PATCH TRANSDERM SCH (08:13)
[2023-09-22] MEDS: amLODIPine 10 MG TAB PO SCH (08:14)
[2023-09-22] MEDS ORDERED: fluPHENAZine DECANOATE 25 MG/ML 5ML MDV IM ONE (11:03)
--- NOTE | 2023-09-22 11:12 | P.PN ---
Progress Note - Text Progress Note Date: 09/22/23 Interval history: Patient was seen today wandering the hallways and was agreeable to speak to fe higgins today in his room. Patient appears to be in a happier mood today appears to be brighter in his affect. He states that he is doing overall fairly well with medications. He did complain of mild spasms in his legs at times however states that he has been walking in the hallways quite a bit. We spoke about increasing the Cogentin a little bit which may help with the spasms. She was agreeable to transition onto long-acting injection and wants to take less by mouth medications. He also claimed that he has been trying to go to groups, participating as best as he can. He continues to be fairly compliant with his medications. Claimed that he was able to sleep last night fairly well. he claims that he is still having some anxiety however this is improving. improving hygiene and grooming. mild improvement in hygiene and grooming. At this time patient denies any suicidal or homicidal ideations intent or plan. Denies any Auditory or visual hallucinations. Mental status exam: General Appearance: Patient appears to be thin, stated age is alert, directable, and attempts to be cooperative. pleasant. Behavior: No agitated behavior. Patient is calm and directable and bizzare. pleasant Speech: Patient's speech is fluent and nonpressured. Mood/Affect: Mood is improving mildly, affect is congruent, improving. Suicidality/Homicidality: Patient denies having any suicidal or homicidal ideation intent or plan. Perceptions: Patient denies any auditory or visual hallucinations. Though content/process: less Delusional, improving. Attempts to cooperate. bizzare content at times, improving Memory and concentration: AOX3, grossly intact for the purposes of this session Judgment and insight: poor, improving mildly Assessment/Plan: Continue with current diagnosis. Patient continues to meet criteria for inpatient psychiatric admission for symptom stabilization and safety. Patient will be maintained on current psychotropic medication regimen, decrease prolixin po 4 mg bid for psychosis with plan to titrate off, will give prolixin D 25 mg IM today. decrease cogentin 1 mg tid for eps reaction, trazodone 150 mg qhs for sleep. zyprexa and vistaril prn for agitation and anxiety. Monitor for medication compliance and for any psychotropic medication side effects. Will continue to monitor ongoing response to treatment. Encouraged participation in milieu. patient deferred with his associate attorney and has been taking meds. likely discharge in 2-3 days back home with parents.
[2023-09-22] MEDS: traZODone HCL 50 MG TAB PO SCH (20:25)
[2023-09-23] MEDS: METOPROLOL SUCCINATE (ER) 50 MG TAB.ER.24H PO SCH (07:56)
[2023-09-23] MEDS: BENZTROPINE MESYLATE 1 MG TAB PO SCH ×3 (07:56→20:25)
[2023-09-23] MEDS: NICOTINE 14MG/24HR PATCH TRANSDERM SCH (07:56)
[2023-09-23] MEDS: amLODIPine 10 MG TAB PO SCH (07:57)
--- NOTE | 2023-09-23 10:26 | P.PN ---
Progress Note - Text Progress Note Date: 09/23/23 Interval history: Patient was seen today laying in his bed and with this news writer today. Patient appears to be in a happier mood today appears to be brighter in his affect. He claims that he is doing fairly well at this time. He states that he is not having any more the EPS reactions or feeling like his legs are getting really think that he is trying to go to some groups. He appears to be more clear today and his thought process, is somewhat concrete. He states that he did talk to his mom continues to not relate in a fight with the talked about. Denies any depression or anxiety at this time. He remains fairly positive. Claimed that he was able to sleep last night fairly well. improving hygiene and grooming. At this time patient denies any suicidal or homicidal ideations intent or plan. Denies any Auditory or visual hallucinations. claims that he is not having any EPS or muscle spasms at this time. Mental status exam: General Appearance: Patient appears to be thin, stated age is alert, directable, and attempts to be cooperative. pleasant. Behavior: No agitated behavior. Patient is calm and directable and less bizzare. pleasant Speech: Patient's speech is fluent and nonpressured. Mood/Affect: Mood is improving mildly, affect is congruent, improving. Suicidality/Homicidality: Patient denies having any suicidal or homicidal ideation intent or plan. Perceptions: Patient denies any auditory or visual hallucinations. Though content/process: not Delusional, improving. Attempts to cooperate. concrete, more appropriate. Memory and concentration: AOX3, grossly intact for the purposes of this session Judgment and insight: poor, improving mildly Assessment/Plan: Continue with current diagnosis. Patient continues to meet criteria for inpatient psychiatric admission for symptom stabilization and safety. Patient will be maintained on current psychotropic medication regimen, decrease prolixin po 3 mg bid for psychosis with plan to titrate off, received prolixin D 25 mg IM on 09/22, next dose will be due in 2 weeks on 10/06. cogentin 1 mg tid for eps reaction, trazodone 150 mg qhs for sleep. zyprexa and vistaril prn for agitation and anxiety. Monitor for medication compliance and for any psychotropic medication side effects. Will continue to monitor ongoing response to treatment. Encouraged participation in milieu. patient deferred with his commercial attorney and has been taking meds. likely discharge in 1-2 days back home with parents once we titrate off the prolixin PO.
[2023-09-23] MEDS: traZODone HCL 50 MG TAB PO SCH (20:23)
[2023-09-24 07:18] VITALS: RESP 14; TEMP 98
[2023-09-24] MEDS: amLODIPine 10 MG TAB PO SCH (08:11)
[2023-09-24] MEDS: BENZTROPINE MESYLATE 1 MG TAB PO SCH ×2 (08:11→15:39)
[2023-09-24] MEDS: METOPROLOL SUCCINATE (ER) 50 MG TAB.ER.24H PO SCH (08:11)
[2023-09-24] MEDS: NICOTINE 14MG/24HR PATCH TRANSDERM SCH (08:16)
[2023-09-24 08:27] VITALS: BP 122/77; PULSE 89
[2023-09-24] MEDS ORDERED: fluPHENAZine DECANOATE 25 MG/ML 5ML MDV IM ONE (11:22)
--- NOTE | 2023-09-24 11:35 | P.DS ---
Providers Date of admission: 09/10/23 09:31 Expected date of discharge: 09/24/23 Attending physician: Laci Pinto MD Consults: 09/10/23 10:11 Consult Physician Routine Consulting Provider: Elliott Landry Consult Reason/Comments: H and P Do you want consulting provider notified?: Yes Primary care physician: Stated None - Discharge Diagnosis(es) (1) Unspecified psychosis Current Visit: Yes Status: Acute Priority: High (2) Cannabis use disorder Current Visit: Yes Status: Acute Priority: High (3) Nicotine dependence Current Visit: Yes Status: Acute Priority: Low (4) Alcohol abuse Current Visit: Yes Status: Acute Priority: Medium Hospital Course: Admission HPI: Admission note was completed by sign writer hand "Patient is a 23-year-old male, currently homeless, he is unemployed. Patient presented to the hospital yesterday, he was apparently brought in for bizarre behavior, psychotic symptoms responding to internal stimuli according to the CPS report. Patient apparently was seen at [facility] a couple of days ago and discharged. Patient gave a urine drug screen which was positive for THC and benzodiazepines. Patient was seen today laying in bed and agreeable speaker sign writer hand. He knew his full name, his age, he knew that he was in [facility]. He knew the correct month and year however believe that it was the . He appeared to be tearful at times and very suspicious of brighter. He was isolating in his room, refused to eat lunch today. He was endorsing severe paranoia thinking that his family was going to come to get him and also "jumped me". He was stating that he was feeling depressed and also anxious. He is claiming that he is very worried and cannot sleep. He appeared to be internally preoccupied. He states that his sleep is very poor, appetite is poor. He states that he cannot hold a job as he is "quitting everything". Patient denies any suicidal or homicidal ideations intent or plan. At this time patient denies any auditory or visual hallucinations. Patient claims that he smokes marijuana however did not specify how much, he also states he smokes cigarettes, denies any other recreational drug use." Hospital course: Upon admission to the unit patient was admitted involuntarily on a petition and certificate and a second certificate was completed and faxed with the courts. Patient ended up signing a deferral with the instrumentation technician and agreeing to treatment. Patient got along well with other patients on the unit and followed unit protocol. Patient was compliant with the medications and denied any side effects throughout hospital course. Patient was started on Prolixin by mouth increased to a dose of 10 mg total daily and patient was transitioned onto Prolixin D 37.5 mg IM to ensure compliance. Patient was given this dose prior to discharge and next dose will be doing to 14 days on 10/06. Trazodone increased her dose of 200 mg daily at bedtime for insomnia/mood, Cogentin 1 mg twice a day for EPS reaction. Patient spoke of his stressors and engaged in therapy both group and individual. Patient was also seen by medical team for history and physical exam. Patient had a computed tomography scan of his brain early on in hospitalization for acute, first episode psychosis and did not show any acute changes. Throughout the course of the hospitalization patient gradually improved with regards to mood, anxiety, psychosis/hallucinations, paranoia, sleep and returned back to their baseline level of functioning. On the day of discharge patient denied any suicidal or homicidal ideations intent or plan denied any auditory or visual hallucinations. Patient endorsed wanting to live for his health and family. The patient denied any access to guns or weapons. Patient denied any paranoia and did not endorse any delusions. Patient does have a significant history of substance abuse and was counseled on abstaining from all substances including alcohol and marijuana. Patient elected to do outpatient substance use treatment program through [facility]. Patient was also counseled on the medications and need for regular compliance and was encouraged to follow-up with their outpatient appointment for mental health and also for primary care. Prior to discharge a family meeting will be arranged by social psychologist to answer any questions and ensure safety upon discharge. Mental status exam: General Appearance: Patient appears to be thin, stated age is alert, pleasant, and cooperative. Patient is in no acute distress and has improved hygiene and grooming Behavior: Patient is calmly seated without any agitated behavior. Speech: Patient's speech is fluent and nonpressured. Mood/Affect: Patient reports their mood is "better", affect is congruent and euthymic. Suicidality/Homicidality: Patient denies having any suicidal or homicidal ideation intent or plan. Perceptions: Patient denies any auditory or visual hallucinations. Though content/process: There is no evidence of any delusional thought content and thought process is linear and goal-directed. Memory and concentration: AOX3, grossly intact for the purposes of this session. Can spell "WORLD" backwards correctly. Judgment and insight: improved with guarded prognosis Impression: Psychosis unspecified Cannabis use disorder alcohol abuse Nicotine dependence Plan: -Continue with discharge today as patient has improved and stabilized psy chiatrically and is not currently an imminent threat to himself and/or others. Patient will remain at chronically elevated risk for harm to self and/or others due to his impulsivity and substance abuse. -Continue medications: Patient was given a total of 37.5 mg IM of Prolixin D on 09/22 and will be due in every 14 days for next dose on 10/06. Patient will be discontinued off of by mouth Prolixin. Trazodone 200 mg daily at bedtime for sleep/mood, Vistaril when necessary for anxiety, cogentin 1 mg bid for eps reaction/spasms. -Patient was counseled on the need for medication compliance and appropriate follow-up at mental health and also primary care for medical issues. Patient verbalized understanding and agreed. -Improvement Spec had family meeting with mother over the phone and social psychologist to discuss patient's condition, treatment and care. We answered questions and patient will be following up at [facility]. -Social work to help coordinate pts dischartge today. Social work also to arrange for patients follow up appointments with [facility] for psychiatric care along with follow up with primary care provider. -Patient counseled on abstaining from recreational drugs and marijuana and alcohol. Was informed/educated on the adverse effects on their physical and mental health. Patient verbally agreed and understood. Patient was offered substance abuse treatment however declined at this time. -Patient was instructed to return to the hospital or seek immediate medical care if their psychiatric or medical symptoms do worsen or reoccur. Allergies Allergy/AdvReac Type Severity Reaction Status Date / Time No Known Allergies Allergy Verified 09/10/23 12:57 Patient Condition at Discharge: Stable Plan - Discharge Summary Discharge Rx Participant: No New Discharge Prescriptions: New Benztropine Mesylate [Cogentin] 1 mg PO BID 30 Days #60 tab Nicotine 14Mg/24Hr Patch [Habitrol] 1 patch TRANSDERM DAILY 14 Days #14 patch amLODIPine [Norvasc] 10 mg PO DAILY 30 Days #30 tab fluPHENAZine decanoate [Prolixin Decanoate] 37.5 mg IM Q14D #1 ml Metoprolol Succinate (ER) [Toprol XL] 50 mg PO DAILY 30 Days #30 tab traZODone HCL 200 mg PO HS 30 Days #60 tab Ibuprofen [Motrin] 600 mg PO Q6HR PRN tab PRN Reason: Moderate Pain (Scale 4 To 6) hydrOXYzine pamoate [Vistaril] 25 mg PO DAILY PRN 30 Days #60 cap PRN Reason: Anxiety Discharge Medication List Benztropine Mesylate [Cogentin] 1 mg PO BID 30 Days #60 tab 09/24/23 [Rx] Ibuprofen [Motrin] 600 mg PO Q6HR PRN tab 09/24/23 [Rx] Metoprolol Succinate (ER) [Toprol XL] 50 mg PO DAILY 30 Days #30 tab 09/24/23 [Rx] Nicotine 14Mg/24Hr Patch [Habitrol] 1 patch TRANSDERM DAILY 14 Days #14 patch 09/24/23 [Rx] amLODIPine [Norvasc] 10 mg PO DAILY 30 Days #30 tab 09/24/23 [Rx] fluPHENAZine decanoate [Prolixin Decanoate] 37.5 mg IM Q14D #1 ml 09/24/23 [Rx] hydrOXYzine pamoate [Vistaril] 25 mg PO DAILY PRN 30 Days #60 cap 09/24/23 [Rx] traZODone HCL 200 mg PO HS 30 Days #60 tab 09/24/23 [Rx] Follow up Appointment(s)/Referral(s): [facility] [place] [Outside] - 1 Week None,Stated [Primary Care Provider] - 1 Week Activity/Diet/Wound Care/Special Instructions: Avoid the use of street drugs and alcohol. Take all medications as prescribed. When you are in need of refills on your medications, please contact your medical provider and/or outpatient psychiatrist/provider to have this done. Please go to your scheduled outpatient appointment for aftercare treatment. If symptoms return or become worse, call the crisis line at and/or go to the nearest emergency room for evaluation. National Suicide Hotline 988. Discharge Disposition: HOME SELF-CARE
[2023-09-24] MEDS ORDERED: traZODone HCL 100 MG TAB PO SCH (21:00)
--- NOTE | 2023-09-29 00:56 | ED ---
Psych HPI - General Chief Complaint: Psychiatric Symptoms Stated Complaint: Mental Health Time Seen by Provider: 09/09/23 20:42 Source: EMS Mode of arrival: EMS - History of Present Illness Initial Comments: This patient is 23-year-old man who is brought to have psychiatric evaluation for bizarre behavior. He also reportedly made suicidal statement. When I interview the patient, he does express delusional thought content. Patient also had been seen yesterday at outside hospital but they had wanted to try outpatient treatment. Patient not sleeping, expressing paranoid delusional thought content. Complaint: other -: days(s) Associated Psychiatric Symptoms: racing thoughts, delusions Quality: getting worse Improves With: none Worsens With: none - Related Data Previous Rx's Medication Instructions Recorded Benztropine Mesylate [Cogentin] 1 mg PO BID 30 Days #60 tab 09/24/23 Ibuprofen [Motrin] 600 mg PO Q6HR PRN tab 09/24/23 Metoprolol Succinate (ER) [Toprol 50 mg PO DAILY 30 Days #30 tab 09/24/23 XL] Nicotine 14Mg/24Hr Patch [Habitrol] 1 patch TRANSDERM DAILY 14 Days 09/24/23 #14 patch amLODIPine [Norvasc] 10 mg PO DAILY 30 Days #30 tab 09/24/23 fluPHENAZine decanoate [Prolixin 37.5 mg IM Q14D #1 ml 09/24/23 Decanoate] hydrOXYzine pamoate [Vistaril] 25 mg PO DAILY PRN 30 Days #60 cap 09/24/23 traZODone HCL 200 mg PO HS 30 Days #60 tab 09/24/23 Allergies Allergy/AdvReac Type Severity Reaction Status Date / Time No Known Allergies Allergy Verified 09/10/23 12:57 Review of Systems ROS Statement: Those systems with pertinent positive or pertinent negative responses have been documented in the HPI. ROS Other: All systems not noted in ROS Statement are negative. Constitutional: Denies: fever Respiratory: Denies: cough, dyspnea Cardiovascular: Denies: chest pain Gastrointestinal: Denies: abdominal pain, vomiting, diarrhea Genitourinary: Denies: dysuria, hematuria Musculoskeletal: Denies: back pain Skin: Denies: rash Neurological: Denies: headache Past Medical History History of Any Multi-Drug Resistant Organisms: None Reported Past Psychological History: Bipolar Smoking Status: Current some day smoker, Former smoker, Vaper Past Alcohol Use History: None Reported Past Drug Use History: None Reported General Exam Limitations: no limitations General appearance: alert, in no apparent distress Head exam: Present: atraumatic, normocephalic Eye exam: Present: normal appearance. Absent: scleral icterus, conjunctival injection Neck exam: Present: normal inspection Respiratory exam: Present: normal lung sounds bilaterally. Absent: respiratory distress, wheezes, rales, rhonchi, stridor Cardiovascular Exam: Present: regular rate, normal rhythm, normal heart sounds. Absent: systolic murmur, diastolic murmur, rubs, gallop GI/Abdominal exam: Present: soft. Absent: distended, tenderness, guarding Extremities exam: Present: normal inspection, normal capillary refill. Absent: pedal edema Back exam: Present: normal inspection Neurological exam: Present: alert, CN II-XII intact, normal gait. Absent: motor sensory deficit Psychiatric exam: Present: manic, suicidal ideation, other (Patient does display paranoid, delusional thought content and disordered thought processes). Absent: agitated, homicidal ideation Skin exam: Present: warm, dry, intact, normal color. Absent: rash Course Vital Signs 09/09/23 09/09/23 09/10/23 19:55 20:06 08:00 Temperature 99.1 F 98 F Pulse Rate 79 58 L Respiratory 16 16 Rate Blood Pressure 159/67 180/90 O2 Sat by Pulse 100 99 Oximetry 09/10/23 11:31 Temperature Pulse Rate 86 Respiratory 16 Rate Blood Pressure 135/68 O2 Sat by Pulse 98 Oximetry Medical Decision Making - Medical Decision Making Was pt. sent in by a medical professional or institution (, PA, EQUITY SALES ASSISTANT, urgent care, hospital, or [facility]...) When possible be specific @ -[No] Did you speak to anyone other than the patient for history (EMS, parent, family, police, friend...)? What history was obtained from this source @ -[Some history contributed from the patient friend Did you review nursing and triage notes (agree or disagree)? Why? @ -[I reviewed and agree with nursing and triage notes] Were old charts reviewed (outside hosp., previous admission, EMS record, old EKG, old radiological studies, urgent care reports/EKG's, [facility] records)? Report findings @ -[No old charts were reviewed] Differential Diagnosis (chest pain, altered mental status, abdominal pain women, abdominal pain men, vaginal bleeding, weakness, fever, dyspnea, syncope, headache, dizziness, GI bleed, back pain, seizure, CVA, palpatations, mental health, musculoskeletal)? @ -[Differential Mental Health Depression, anxiety, bipolar, psychosis, schizophrenia, borderline personality, situational depression, adjustment disorder, behavioral disorder, brain tumor, malingering, substance abuse, encephalopathy, medication reaction, dementia, hypothyroidism, degenerative neurologic disorder, lupus.... This is not meant to be all-inclusive list EKG interpreted by me (3pts min.). @ -[As above] X-rays interpreted by me (1pt min.). @ -[None done] CT interpreted by me (1pt min.). @ -[None done] U/S interpreted by me (1pt. min.). @ -[None done] What testing was considered but not performed or refused? (CT, X-rays, U/S, labs)? Why? @ -[None] What meds were considered but not given or refused? Why? @ -[None] Did you discuss the management of the patient with other professionals (professionals i.e. , PA, EQUITY SALES ASSISTANT, lab, RT, psych nurse, social work job titles, freight car cleaner, teacher, interface control officer, home health care case manager)? Give summary @ -[Is discussed with EPS personnel, they discussed the patient with psychiatry and will admit patient for further health care Was smoking cessation discussed for >3mins.? @ -[No] Was critical care preformed (if so, how long)? @ -[No] Were there social determinants of health that impacted care today? How? (Homel essness, low income, unemployed, alcoholism, drug addiction, transportation, low edu. Level, literacy, decrease access to med. care, care home, rehab)? @ -[No] Was there de-escalation of care discussed even if they declined (Discuss DNR or withdrawal of care, Hospice)? DNR status @ -[No] What co-morbidities impacted this encounter? (DM, HTN, Smoking, COPD, CAD, Cancer, CVA, ARF, Chemo, Hep., AIDS, mental health diagnosis, sleep apnea, morbid obesity)? @ -[None] Was patient admitted / discharged? Hospital course, mention meds given and route, prescriptions, significant lab abnormalities, going to OR and other pertinent info. @ -[Admitted, see above Undiagnosed new problem with uncertain prognosis? @ -[No] Drug Therapy requiring intensive monitoring for toxicity (Heparin, Nitro, Insulin, Cardizem)? @ -[No] Were any procedures done? @ -[No] Diagnosis/symptom? @ -[Acute psychosis Acute, or Chronic, or Acute on Chronic? @ -[Acute Uncomplicated (without systemic symptoms) or Complicated (systemic symptoms)? @ -[Uncomplicated Side effects of treatment? @ -[No] Exacerbation, Progression, or Severe Exacerbation? @ -[No] Poses a threat to life or bodily function? How? (Chest pain, [place], [place], pneumonia, PE, COPD, DKA, ARF, appy, cholecystitis, CVA, Diverticulitis, Homicidal, Suicidal, threat to staff... and all critical care pts) @ -[No] - Lab Data Result diagrams: 09/12/23 12:23 09/13/23 16:25 Lab Results 09/09/23 09/09/23 09/10/23 Range/Units 21:12 21:12 03:30 WBC 11.3 H (3.8-10.6) k/uL RBC 5.85 (4.30-5.90) m/uL Hgb 16.9 (13.0-17.5) gm/dL Hct 48.8 (39.0-53.0) % MCV 83.4 (80.0-100.0) fL MCH 28.8 (25.0-35.0) pg MCHC 34.5 (31.0-37.0) g/dL RDW 12.6 (11.5-15.5) % Plt Count 177 (150-450) k/uL MPV 9.2 Neutrophils % 71 % Lymphocytes % 21 % Monocytes % 7 % Eosinophils % 0 % Basophils % 0 % Neutrophils # 8.0 H (1.3-7.7) k/uL Lymphocytes # 2.3 (1.0-4.8) k/uL Monocytes # 0.7 (0-1.0) k/uL Eosinophils # 0.0 (0-0.7) k/uL Basophils # 0.0 (0-0.2) k/uL Sodium 141 (137-145) mmol/L Potassium 3.6 (3.5-5.1) mmol/L Chloride 102 (98-107) mmol/L Carbon Dioxide 26 (22-30) mmol/L Anion Gap 13 mmol/L BUN 5 L (9-20) mg/dL Creatinine 0.59 L (0.66-1.25) mg/dL Est GFR (CKD-EPI)AfAm >90 (>60 ml/min/1.73 sqM) Est GFR (CKD-EPI)NonAf >90 (>60 ml/min/1.73 sqM) Glucose 108 H (74-99) mg/dL Calcium 9.8 (8.4-10.2) mg/dL Total Bilirubin 1.3 (0.2-1.3) mg/dL AST 23 (17-59) U/L ALT 19 (4-49) U/L Alkaline Phosphatase 65 (38-126) U/L Total Protein 8.0 (6.3-8.2) g/dL Albumin 4.9 (3.5-5.0) g/dL TSH 1.770 (0.465-4.680) mIU/L Urine Color Urine Appearance (Clear) Urine pH (5.0-8.0) Ur Specific [place] (1.001-1.035) Urine Protein (Negative) Urine Glucose (UA) (Negative) Urine Ketones (Negative) Urine Blood (Negative) Urine Nitrite (Negative) Urine Bilirubin (Negative) Urine Urobilinogen (<2.0) mg/dL Ur Leukocyte Esterase (Negative) Urine RBC (0-5) /hpf Urine WBC (0-5) /hpf Ur Squamous Epith Cells (0-4) /hpf Urine Mucus (None) /hpf Urine Opiates Screen Not Detected (NotDetected) Ur Oxycodone Screen Not Detected (NotDetected) Urine Methadone Screen Not Detected (NotDetected) Ur Propoxyphene Screen Not Detected (NotDetected) Ur Barbiturates Screen Not Detected (NotDetected) U Tricyclic Antidepress Not Detected (NotDetected) Ur Phencyclidine Scrn Not Detected (NotDetected) Ur Amphetamines Screen Not Detected (NotDetected) U Methamphetamines Scrn Not Detected (NotDetected) U Benzodiazepines Scrn Detected H (NotDetected) Urine Cocaine Screen Not Detected (NotDetected) U Marijuana (THC) Screen Detected H (NotDetected) Coronavirus (PCR) (Not Detectd) 09/10/23 09/10/23 Range/Units 03:30 05:00 WBC (3.8-10.6) k/uL RBC (4.30-5.90) m/uL Hgb (13.0-17.5) gm/dL Hct (39.0-53.0) % MCV (80.0-100.0) fL MCH (25.0-35.0) pg MCHC (31.0-37.0) g/dL RDW (11.5-15.5) % Plt Count (150-450) k/uL MPV Neutrophils % % Lymphocytes % % Monocytes % % Eosinophils % % Basophils % % Neutrophils # (1.3-7.7) k/uL Lymphocytes # (1.0-4.8) k/uL Monocytes # (0-1.0) k/uL Eosinophils # (0-0.7) k/uL Basophils # (0-0.2) k/uL Sodium (137-145) mmol/L Potassium (3.5-5.1) mmol/L Chloride (98-107) mmol/L Carbon Dioxide (22-30) mmol/L Anion Gap mmol/L BUN (9-20) mg/dL Creatinine (0.66-1.25) mg/dL Est GFR (CKD-EPI)AfAm (>60 ml/min/1.73 sqM) Est GFR (CKD-EPI)NonAf (>60 ml/min/1.73 sqM) Glucose (74-99) mg/dL Calcium (8.4-10.2) mg/dL Total Bilirubin (0.2-1.3) mg/dL AST (17-59) U/L ALT (4-49) U/L Alkaline Phosphatase (38-126) U/L Total Protein (6.3-8.2) g/dL Albumin (3.5-5.0) g/dL TSH (0.465-4.680) mIU/L Urine Color Yellow Urine Appearance Clear (Clear) Urine pH 7.0 (5.0-8.0) Ur Specific [place] 1.010 (1.001-1.035) Urine Protein Negative (Negative) Urine Glucose (UA) Negative (Negative) Urine Ketones 3+ H (Negative) Urine Blood Negative (Negative) Urine Nitrite Negative (Negative) Urine Bilirubin Negative (Negative) Urine Urobilinogen <2.0 (<2.0) mg/dL Ur Leukocyte Esterase Negative (Negative) Urine RBC 1 (0-5) /hpf Urine WBC 1 (0-5) /hpf Ur Squamous Epith Cells <1 (0-4) /hpf Urine Mucus Occasional H (None) /hpf Urine Opiates Screen (NotDetected) Ur Oxycodone Screen (NotDetected) Urine Methadone Screen (NotDetected) Ur Propoxyphene Screen (NotDetected) Ur Barbiturates Screen (NotDetected) U Tricyclic Antidepress (NotDetected) Ur Phencyclidine Scrn (NotDetected) Ur Amphetamines Screen (NotDetected) U Methamphetamines Scrn (NotDetected) U Benzodiazepines Scrn (NotDetected) Urine Cocaine Screen (NotDetected) U Marijuana (THC) Screen (NotDetected) Coronavirus (PCR) Not Detected (Not Detectd) Disposition Clinical Impression: Unspecified psychosis Disposition: ADMITTED IP TO THIS [facility] Condition: Stable
== END 2023-09-24 15:50 | disposition home or self-care (01) | DRG 751 ==
LOC: EC 19:35 → 3MHU 09-10 09:31
PROVIDERS: ADMIT Psychiatry & Neurology Psychiatry; ATTEND Psychiatry & Neurology Psychiatry
DX: F29 Unspecified psychosis not due to a substance or known physiological condition (principal); F12.90 Cannabis use, unspecified, uncomplicated; G47.00 Insomnia, unspecified; I16.0 Hypertensive urgency; Z79.899 Other long term (current) drug therapy; F10.10 Alcohol abuse, uncomplicated
CPT/HCPCS: 36415; 70450; 80048; 80053; 80061; 80306; 81003; 82075; 83036; 83735; 84443; 85025; 85379; 87635; 93005; 99285